=== PATIENT | male | born 1980 | race Caucasian/White ===

== ENCOUNTER 2021-07-20 21:36 | Emergency (ER) | payer BC ==
[~2021-07-20] VITALS: Ht 175.3 cm; Wt 81.6 kg
[2021-07-20] MEDS ORDERED: CECLOR125 MG/5 M PO (21:52)
== END 2021-07-20 22:28 | disposition home or self-care (01) ==
LOC: ER 21:36
DX: S61.217A Laceration without foreign body of left little finger without damage to nail, initial encounter (principal); W22.8XXA Striking against or struck by other objects, initial encounter; Y93.89 Activity, other specified; Y92.018 Other place in single-family (private) house as the place of occurrence of the external cause; Y99.8 Other external cause status

== ENCOUNTER 2023-04-25 12:57 | Emergency (ER) | payer BC ==
[~2023-04-25] VITALS: Ht 172.7 cm; Wt 77.1 kg
[~2023-04-25 12:57] MED LIST: CECLOR125 MG/5 M PO
== END 2023-04-25 13:50 | disposition home or self-care (01) ==
LOC: ER 12:57
DX: S86.812A Strain of other muscle(s) and tendon(s) at lower leg level, left leg, initial encounter (principal)